=== PATIENT | male | born 1990 | race Caucasian/White ===

== ENCOUNTER 2024-05-20 17:05 | Emergency (ER) | payer SELFPAY ==
--- NOTE | 2024-05-20 17:12 | ED_ITS ---
HPI - URI/Sore Throat General Chief Complaint: Upper Respiratory Infection Stated Complaint: EARACHE/DRAINAGE/VOMITING/PASSED OUT Time Seen by Provider: 05/20/24 17:12 Source: patient, RN notes reviewed and old records reviewed Mode of arrival: ambulatory Limitations: no limitations History of Present Illness HPI Narrative: 34-year-old male presents to the [facility] with an earache with drainage. Symptoms started a couple of days ago. Was not able to get out yesterday due to the weather. They did states that he was having an ophthalmology appointment today with eyedrops and pressures of the eyes due to chronic eye issues. States that he did pass out, started to vomit. A rapid response was called at [facility]. Evaluation was done there for the syncopal episode most likely vasovagal. States that he also needed to be seen for his ear issue. Patient's mom and patient both state that they are only here for the evaluation of the drainage from his ear Related Data Allergies Allergy/AdvReac Type Severity Reaction Status Date / Time No Known Allergies Allergy Verified 05/20/24 17:20 Review of Systems Review of Systems: All systems reviewed & are unremarkable except as noted in HPI and below Constitutional: Constitutional: Reports no additional constitutional complaints ENT: Reports as per HPI and Reports ear discharge Cardiovascular: Cardiovascular: Reports no additional cardiovascular complaints, Denies chest pain and Denies dyspnea Respiratory: Respiratory: Reports no additional respiratory complaints, Denies chest congestion, Denies cough and Denies dyspnea Musculoskeletal: Musculoskeletal: Reports no additional musculoskeletal complaints Integumentary/Breasts: Skin/Breast: Reports system reviewed and no additional complaints, except as docu PMFSH Family History Family History Mother Hypertension Father Patient's father is in good health Sibling Patient's sister is in good health Social History Social History Smoking status: Never smoker Alcohol intake: current Substance use type: marijuana Comments At the time of my signature, I reviewed and agree with the nursing past medical, surgical, social, and family history. There is no relevant family history pertinent to the patient complaint. Exam 2 Const: General: cooperative, healthy appearing, comfortable, no acute distress, well developed, alert and well nourished Nutritional Appearance: well nourished Orientation/consciousness: patient oriented x3 Limitations: no limitations HENMT: Head: normal to inspection Ears: mastoids normal, no periauricular adenopathy, Abnormal EAC present otic discharge purulent on the left; no EA tenderness and unable to visualize TM on the left Throat: posterior oropharynx normal, uvula midline and no uvular edema Eyes: General: appearance normal, both eyes and all related structures Alignment and Position: alignment normal Neck: Neck: normal visual inspection, full ROM, no lymphadenopathy and no meningeal signs Chest: Chest palpation & inspection: normal inspection of the chest Resp: Effort & Inspection: normal respiratory effort and able to speak in complete sentences Auscultation: clear to auscultation bilaterally, no crackles, no rales, no rhonchi and no wheezes Cardio: Rate: regular rate Skin: General skin exam: normal color and no rashes or lesions noted Neuro: General: patient oriented x3, gait normal, moves all extremities and no meningeal signs Cognition (Neuro): normal cognition Speech: normal speech Gait exam (Neuro): Normal gait present Extrem: General: normal to inspection, full ROM, capillary refill normal and normal gait Psych: Appearance: grossly normal and well kempt Mental Status: mental status grossly normal Speech and movement: Normal speech and movement present and Clear speech present Affect: normal affect Attitude: cooperative Course Course Level of Care: Express Care Visit Vital Signs Vital signs: Vital Signs Temperature 97.3 F L 05/20/24 17:15 Pulse Rate 66 05/20/24 17:15 Respiratory Rate 16 05/20/24 17:15 Blood Pressure 115/74 05/20/24 17:15 Pulse Oximetry 100 05/20/24 17:15 Temperature 97.3 F L 05/20/24 17:15 Pulse Rate 66 05/20/24 17:15 Respiratory Rate 16 05/20/24 17:15 Blood Pressure 115/74 05/20/24 17:15 Pulse Oximetry 100 05/20/24 17:15 Reviewed MDM - URI/Sore Throat MDM Narrative Medical decision making narrative: Patient sitting comfortably in exam room. Nontoxic, vitals stable patient presents with evaluation of ear drainage. Has had similar issues Purulent drainage noted from the left ear. Unable to visualize TM. Patient will be covered with ear drops and with oral antibiotics Appropriate for outpatient treatment and follow-up Differential Diagnosis Differential diagnosis: Likely upper respiratory infection, otitis media and sinusitis Critical Care Time Critical Care Time Critical Care Time: No Discharge Plan Discharge Clinical Impression: Acute left otitis media Patient Disposition: Home, Self-Care Condition: Stable Instructions: Antibiotic Form, Ear Infection (GEN) Additional Instructions: follow-up with primary care provider follow-up with ENT take antibiotics and use ear drops as prescribed for new or worsening symptoms go directly to the emergency room Patient Language: Serbian Prescriptions: New amoxicillin-pot clavulanate 875-125 mg tablet 1 tablet PO Q12H Qty: 20 0RF ofloxacin 0.3 % drops 5 drp LEFT EAR BID 7 Days Qty: 10 0RF Follow-up/Referrals: Ginger,DARREL Katz [Primary Care Provider] - 1 Week ( [facility] follow-up) Time of Disposition: 17:29
[2024-05-20 17:15] VITALS: BP 115/74; PULSE 66; RESP 16; TEMP 36.3; O2SAT 100
== END 2024-05-20 17:35 | disposition home or self-care (01) ==
PROVIDERS: Emergency Provider Nurse Practitioner; PCP Registered Nurse
DX: H66.92 Otitis media, unspecified, left ear (principal); F12.90 Cannabis use, unspecified, uncomplicated
CPT/HCPCS: 99213; G0463

== ENCOUNTER 2024-12-17 18:42 | Emergency (ER) | payer OTHER, SELFPAY ==
[2024-12-17 18:53] VITALS: BP 105/78; PULSE 72; RESP 18; TEMP 36.7; O2SAT 100
--- NOTE | 2024-12-17 18:53 | ED.EAR ---
HPI - Ear Problem General Chief complaint: Ear Stated complaint: Possible L ear infection Time Seen by Provider: 12/17/24 18:53 Source: patient Mode of arrival: ambulatory Limitations: no limitations History of Present Illness HPI Narrative: 34 yo M presents with L ear pain and drainage. Pt reports hx of several ear infections. Hx of perforated eardrumb but has not seen ENT for several years, unsure if he still has it. No recent swimming. Thinks ear infection is from putting ear in shower water. All systems reviewed and negative except as noted above. Related Data Home Medications ?Medication ?Instructions ?Recorded ?Confirmed ?Last Taken ?Type brimonidine 0.2 % eye drops 1 drp LEFT EYE TID 12/17/24 12/17/24 Unknown History dorzolamide 2 % eye drops 1 drp LEFT EYE TID 12/17/24 12/17/24 Unknown History latanoprost 0.005 % eye drops 1 drp LEFT EYE QPM 12/17/24 12/17/24 Unknown History prednisolone acetate 1 % eye 1 drp LEFT EYE BID 12/17/24 12/17/24 Unknown History drops,suspension sertraline 100 mg tablet 100 mg PO Q24H 12/17/24 12/17/24 Unknown History timolol maleate 0.5 % eye drops 1 drp LEFT EYE TID 12/17/24 12/17/24 Unknown History Allergies Allergy/AdvReac Type Severity Reaction Status Date / Time No Known Allergies Allergy Verified 12/17/24 18:50 PMFSH Family History Family History Mother Hypertension Father Patient's father is in good health Sibling Patient's sister is in good health Social History Social History Smoking status: Never smoker Alcohol intake: current Substance use type: marijuana Comments At time of signature, agree with nursing past medical, surgical, social and family history. There is no relevant family history pertinent to the presenting complaint. Exam Narrative: GENERAL: This is a well-nourished, well-developed patient, in no apparent distress. HEAD: normocephalic, atraumatic. EYES: PERRL. Sclera clear/white. Vision is grossly intact. EARS: External ears normal, R ear canal normal. L ear canal is erythematous with mild swelling. tragal tenderness. L TM is viewable but not completely. no erythema. Unable to rule out perforation. R TM normal. Hearing grossly intact. NOSE: External nose normal NECK: Neck supple, non-tender without lymphadenopathy, masses or thyromegaly. CARDIOVASCULAR: Regular rate and rhythm without murmurs, gallops, or rubs. RESPIRATORY: Clear to auscultation. Breath sounds equal bilaterally. No wheezes, rales, or rhonchi. SKIN: warm, Dry, intact with no suspicious lesions or rash, good texture and turgor. NEURO: awake, alert, and oriented to person, place and time. There were no obvious focal neurologic abnormalities. EXTREMITIES: No joint tenderness, effusion, or edema noted. Course Course Level of Care: Express Care Visit Vital Signs Vital signs: Vital Signs Temperature 36.7 C 12/17/24 18:53 Pulse Rate 72 12/17/24 18:53 Respiratory Rate 18 12/17/24 18:53 Blood Pressure 105/78 12/17/24 18:53 Pulse Oximetry 100 12/17/24 18:53 Temperature 36.7 C 12/17/24 18:53 Pulse Rate 72 12/17/24 18:53 Respiratory Rate 18 12/17/24 18:53 Blood Pressure 105/78 12/17/24 18:53 Pulse Oximetry 100 12/17/24 18:53 reviewed Medical Decision Making MDM Narrative Medical decision making narrative: explained to pt otitis externa treated with antibiotic ear drop. he is adamant that this will not work for him and that he needs oral antibiotic. pt upset he would be given ear drop when he might have TM perforation. explained to pt ofloxacin ear drop is safe with TM perforation. Pt still requesting oral abx. requesting ENT referral. Vital Signs Vital Signs: Vital Signs Temperature 36.7 C 12/17/24 18:53 Pulse Rate 72 12/17/24 18:53 Respiratory Rate 18 12/17/24 18:53 Blood Pressure 105/78 12/17/24 18:53 Pulse Oximetry 100 12/17/24 18:53 Temperature 36.7 C 12/17/24 18:53 Pulse Rate 72 12/17/24 18:53 Respiratory Rate 18 12/17/24 18:53 Blood Pressure 105/78 12/17/24 18:53 Pulse Oximetry 100 08/06/25 18:53 Discharge Plan Discharge Clinical Impression: Acute otitis externa of left ear Patient Disposition: Home Condition: Stable Instructions: Antibiotic Form, Ear Infection (ED) Additional Instructions: Take medication as prescribed until gone. Take ibuprofen or tylenol every 6 to 8 hours as needed for pain. Follow up with ENT. Patient Language: Nepali Prescriptions: New amoxicillin-pot clavulanate 875-125 mg tablet 1 tablet PO Q12H 10 Days Qty: 20 0RF ofloxacin 0.3 % drops 10 drp LEFT EAR DAILY 7 Days Qty: 10 0RF No Action sertraline 100 mg tablet 100 mg PO Q24H dorzolamide 2 % drops 1 drp LEFT EYE TID brimonidine 0.2 % drops 1 drp LEFT EYE TID latanoprost 0.005 % drops 1 drp LEFT EYE QPM prednisolone acetate 1 % drops,suspension 1 drp LEFT EYE BID timolol maleate 0.5 % drops 1 drp LEFT EYE TID Follow-up/Referrals: David Earl MD [Physician] - (schedule follow up with with Ear, Nose and Throat specialist) Ginger,DARREL Katz [Primary Care Provider] - Time of Disposition: 19:05
== END 2024-12-17 19:07 | disposition home or self-care (01) ==
PROVIDERS: Emergency Provider Nurse Practitioner Family; PCP Registered Nurse
DX: H60.92 Unspecified otitis externa, left ear (principal); F12.90 Cannabis use, unspecified, uncomplicated
CPT/HCPCS: 99213; G0463